=== PATIENT | female | born 1965 | race Caucasian/White ===

== ENCOUNTER 2017-10-15 07:36 | Emergency (ER) | payer BC ==
[~2017-10-15 07:36] MED LIST: CIT20 PO; CYC10 PO; HYDR-3083 PO; LOR5/325 PO; MECL-205 PO; MULT1CAP59 PO; PRE20 PO
--- NOTE | 2017-10-15 07:40 | ER Report ---
History and Physical Time Seen By MD: 07:39 HPI/ROS CHIEF COMPLAINT: Left elbow injury HISTORY OF PRESENT ILLNESS: Patient is an otherwise healthy 52-year-old female who is left-hand dominant. She presents to the emergency department with complaint of left elbow injury. She states that she tripped and fell hitting her left elbow against a doorknob on Sunday. She had a small abrasion with minimal bleeding at the time. She also had some minimal discomfort. She did not think much of it after that. Last night however around 3 AM she woke up with redness pain and swelling to the elbow. She denies any fevers or chills. She states that extension at the elbow causes significant pain. She is unsure of her last tetanus shot. She does state that it is probably more than 5 years. She reports allergy to sulfa medication. REVIEW OF SYSTEMS: Constitutional: No fevers or chills Musculoskeletal: Left elbow pain and swelling Skin: Redness over the left elbow Allergies: Coded Allergies: Sulfa (Sulfonamide Antibiotics) (Verified Allergy, Mild, 12/18/10) Home Meds Active Scripts Ondansetron Hcl (ZOFRAN) 4 Mg Tablet, 4 MG PO Q8H for Nausea, #15 TAB 0 Refills Prov:DEE DEE JASSO MD 10/15/17 Oxycodone Hcl/Acetaminophen (PERCOCET 5-325 MG TABLET) 1 Each Tablet, 1-2 EACH PO Q6H for PAIN, #30 TAB 0 Refills no more than 6 tablets in a 24 hour period Prov:DEE DEE JASSO MD 10/15/17 Clindamycin Hcl (CLINDAMYCIN HCL) 300 Mg Capsule, 300 MG PO Q6H for 7 Days, #28 CAPSULE 0 Refills Prov:DEE DEE JASSO MD 10/15/17 Reported Medications Multivitamin (MULTIVITAMINS) 1 Each Capsule, 1 EACH PO QDAY, CAPSULE 04/06/16 Citalopram Hydrobromide (Celexa) 20 Mg Tab, 40 MG PO HS 12/18/10 Past Medical/Surgical History Noncontributory towards this chief complaint. Hx Smoking: Yes (1 PACK EVERY OTHER DAY) Smoking Status: Current: Every Day Smoker Hx Substance Use Disorder: No Hx Alcohol Use: Yes (OCCASIONALLY) Constitutional Vital Sign - Last 24 Hours 10/15/17 07:40 Temp 98.9 Pulse 81 Resp 18 B/P (MAP) 124/66 Pulse Ox 96 O2 Delivery Room Air Physical Exam General appearance: Alert no distress. Musculoskeletal examination of the left elbow reveals swelling over the olecranon with surrounding erythema that extends distally down the forearm on the dorsal service. Patient is able to pronate and supinate she is able to flex the elbow but has difficulty with full extension. Skin patient has erythema over the left elbow specifically the olecranon bursa. There is a small abrasion centrally to this area. DIFFERENTIAL DIAGNOSIS: After history and physical exam was performed differential diagnosis was formulated which includes but is not limited to cellulitis, olecranon bursitis, less likely dislocation of elbow, less likely fracture of elbow Medical Decision Making EKG/Imaging Imaging FACILITY: [facility] PATIENT NAME: Kassy Galvan : 1965 MR: [id number] V: [id number] EXAM DATE: ORDERING PHYSICIAN: DEE DEE JASSO TECHNOLOGIST: Location: [facility] Patient: Kassy Galvan : 1965 Visit/Account:[id number] Date of Sevice: 10/15/2017 ELBOW 3 VIEW LEFT COMPARISON: None. HISTORY: Infection TECHNIQUE: 3 views of the left elbow FINDINGS: BONES: No significant arthropathy, fracture, malalignment, or significant osseous lesion. Elbow alignment is within normal limits. SOFT TISSUES: Moderate, predominantly dorsal soft tissue swelling. This is relatively focal or olecranon process and olecranon bursitis is not excluded. EFFUSION: No significant distal humeral fat pad displacement to suggest the presence of a joint effusion. OTHER: Negative. IMPRESSION: 1. Left elbow soft tissue swelling, probably representing cellulitis. There may be a component of olecranon bursitis. 2. No evidence of osteomyelitis or effusion. Report Dictated By: Zhang Bhagat at 10/15/2017 8:04 AM Report E-Signed By: Zhang Bhagat at 10/15/2017 8:06 AM WSN:[id number] ED Course/Re-evaluation ED Course 10/15/2017 7:51:10 am based on history and physical exam suspect cellulitis and overlying olecranon bursitis. Plan at this time will be to update tetanus status. We will place an IV given IV dose of Rocephin. We will x-ray the left elbow. Plan will most likely be incision and drainage with packing. Procedure 10/15/2017 8:34:01 am procedure incision and drainage of abscess: A bedside ultrasound was used to confirm the presence of an olecranon bursitis. After informed consent was obtained the patient was draped and prepped in usual sterile fashion. 8 mL of 0.5%. The cane was used for local anesthesia. An 11 blade was used to make a 1 cm incision over the olecranon bursa. There was drainage of both pus and blood approximately 10-15 mL's in total amount. The wound was then explored and loculations were broken up using sterile cotton- tipped applicator soaked in hydrogen peroxide. The wound was then packed with 0.5 inch Nu Gauze approximately 3 inches. The wound was then dressed appropriately with a. Dressing, 4 x 4's and a Haim wrap. He tolerated procedure well. No cultures of the wound were taken as I explained to the patient this would not affect management. Decision to Disposition Date: Oct 15, 2017 Decision to Disposition Time: 08:35 Depart Departure Latest Vital Signs Vital Signs Date Time Temp Pulse Resp B/P (MAP) Pulse Ox O2 Delivery O2 Flow Rate FiO2 10/15/17 07:40 98.9 81 18 124/66 96 Room Air Impression: Primary Impression: Olecranon bursitis of left elbow Additional Impression: Cellulitis of left elbow Condition: Improved Disposition: HOME OR SELF-CARE Referrals: SANTOS SCHMITZ (PCP) New Scripts Ondansetron Hcl (ZOFRAN) 4 Mg Tablet 4 MG PO Q8H for Nausea, #15 TAB 0 Refills Prov: DEE DEE JASSO MD 10/15/17 Oxycodone Hcl/Acetaminophen (PERCOCET 5-325 MG TABLET) 1 Each Tablet 1-2 EACH PO Q6H for PAIN, #30 TAB 0 Refills no more than 6 tablets in a 24 hour period Prov: DEE DEE AJSSO MD 10/15/17 Clindamycin Hcl (CLINDAMYCIN HCL) 300 Mg Capsule 300 MG PO Q6H for 7 Days, #28 CAPSULE 0 Refills Prov: DEE DEE JASSO MD 10/15/17 Patient Instructions: Acute Wound Care (ED), Cellulitis (ED), Elbow Bursitis ( ED) Additional Instructions: Start taking your antibiotics as soon as 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 Return to the emergency department in 48 hours for wound evaluation and potential repacking. Return to the emergency Department immediately for reevaluation at any time if you develop worsening pain, worsening redness, or fever. Keep the wound dressed at all times the exception of when you shower. At this time you may take down the dressing in shower, keep the wound covered with a loose bandage. Once the shower is completely redress the wound with supplies we have given you. Problem Qualifiers DEE DEE JASSO MD Oct 15, 2017 07:40
[2017-10-15] MEDS ORDERED: DIPHTH/TETANUS/ACEL. PERTUSSIS IM ONLY ONE (07:45)
--- NOTE | 2017-10-15 08:10 | RADIOLOGY IMAGING REPORT ---
FAC[place] [facility] [place]IENT NAME: Kassy Galvan : 1965 MR: [id number] V: [id number] EXAM DATE: ORDERING PHYSICIAN: DEE DEE JASSO TECHNOLOGIST: Location: [facility] Patient: Kassy Galvan : 1965 Visit/Account:[id number] Date of Sevice: 10/15/2017 ELBOW 3 VIEW LEFT COMPARISON: None. HISTORY: Infection TECHNIQUE: 3 views of the left elbow FINDINGS: BONES: No significant arthropathy, fracture, malalignment, or significant osseous lesion. Elbow ali gnment is within normal limits. SOFT TISSUES: Moderate, predominantly dorsal soft tissue swelling. This is relatively focal or olec ranon process and olecranon bursitis is not excluded. EFFUSION: No significant distal humeral fat pad displacement to suggest the presence of a joint effu gustavo. OTHER: Negative. IMPRESSION: 1. Left elbow soft tissue swelling, probably representing cellulitis. There may be a component of ol ecranon bursitis. 2. No evidence of osteomyelitis or effusion. Report Dictated By: Zhang Bhagat at 10/15/2017 8:04 AM Report E-Signed By: Zhang Bhagat at 10/15/2017 8:06 AM WSN:[id number]
[2017-10-15 08:30] VITALS: BP 122/68
[2017-10-15] MEDS ORDERED: OXYC-865 PO (08:37)
[2017-10-15] MEDS ORDERED: ONDA4TAB97 PO (08:37)
[2017-10-15] MEDS ORDERED: CLIN300C99 PO (08:37)
[2017-10-15] MEDS ORDERED: cefTRIAXone 1 GM VIAL IVP SCH (09:00)
== END 2017-10-15 08:50 | disposition home or self-care (01) ==
LOC: ER 07:45
DX: M70.22 Olecranon bursitis, left elbow (principal); L03.114 Cellulitis of left upper limb
CPT/HCPCS: 23931; 73080; 90715; J0696; 90471; 96374; 99283; 99284

== ENCOUNTER 2017-10-17 08:01 | Emergency (ER) | payer BC ==
[~2017-10-17 08:01] MED LIST changes: +CLIN300C99 PO; +ONDA4TAB97 PO; +OXYC-865 PO
[2017-10-17 08:05] VITALS: BP 122/56
--- NOTE | 2017-10-17 08:19 | ER Report ---
History and Physical Time Seen By MD: 08:10 Hx. of Stated Complaint: patient was seen on sunday for an abscess on her left elbow. she is here to have the packing removed HPI/ROS CHIEF COMPLAINT: Packing change HISTORY OF PRESENT ILLNESS: 52-year-old female with an abscess to her left elbow wound was incisioned and drained a couple days ago she is here for packing changing Remainder of the 14 system rev: Yes Allergies: Coded Allergies: Sulfa (Sulfonamide Antibiotics) (Verified Allergy, Mild, 12/18/10) Home Meds Active Scripts Ondansetron Hcl (ZOFRAN) 4 Mg Tablet, 4 MG PO Q8H for Nausea, #15 TAB 0 Refills Prov:DEE DEE JASSO MD 10/15/17 Oxycodone Hcl/Acetaminophen (PERCOCET 5-325 MG TABLET) 1 Each Tablet, 1-2 EACH PO Q6H for PAIN, #30 TAB 0 Refills no more than 6 tablets in a 24 hour period Prov:DEE DEE JASSO MD 10/15/17 Clindamycin Hcl (CLINDAMYCIN HCL) 300 Mg Capsule, 300 MG PO Q6H for 7 Days, #28 CAPSULE 0 Refills Prov:DEE DEE JASSO MD 10/15/17 Reported Medications Multivitamin (MULTIVITAMINS) 1 Each Capsule, 1 EACH PO QDAY, CAPSULE 04/06/16 Citalopram Hydrobromide (Celexa) 20 Mg Tab, 40 MG PO HS 12/18/10 Reviewed Nurses Notes: Yes Old Medical Records Reviewed: Yes Hx Smoking: Yes (1 PACK EVERY OTHER DAY) Smoking Status: Current: Every Day Smoker Hx Substance Use Disorder: No Hx Alcohol Use: Yes (OCCASIONALLY) Constitutional Vital Sign - Last 24 Hours 10/17/17 08:05 Temp 98.4 Pulse 74 Resp 20 B/P (MAP) 122/56 Pulse Ox 98 O2 Delivery Room Air Physical Exam General appearance: Alert no distress. Respiratory: Chest is non tender, lungs are clear to auscultation. Cardiac: Regular rate and rhythm [ ] Left elbow examination area is still red warm erythematous consistent with a abscess which has been drained packing is placed DIFFERENTIAL DIAGNOSIS: After history and physical exam differential diagnosis was considered for repacking of an incision and drainage of an elbow abscess Medical Decision Making ED Course/Re-evaluation ED Course ED clinical course medical decision making 52-year-old female who recently had an incision and drainage of the left elbow packing was replaced Procedure note patient had her packing removed without issues secondary packing a one-inch iodoform gauze was placed approximately 2-2.5 cm sterile dressing applied with a Covan patient tolerated well Patient be discharged continued on her home medications including antibiotics and pain medication and follow-up with the medical office building as she has no primary care and instead of her coming to the ER for packing changes which is fine with advised her to get a primary care doc due to age frequency and comorbidity Decision to Disposition Date: Oct 17, 2017 Decision to Disposition Time: 08:18 Depart Departure Latest Vital Signs Vital Signs Date Time Temp Pulse Resp B/P (MAP) Pulse Ox O2 Delivery O2 Flow Rate FiO2 10/17/17 08:05 98.4 74 20 122/56 98 Room Air Impression: Primary Impression: Wound check, abscess Condition: Improved Disposition: HOME OR SELF-CARE Referrals: SANTOS SCHMITZ (PCP) 2 Days Patient Instructions: Abscess (ED), Abscess Incision and Drainage (DC) JAYCEE JOHNSON MD Oct 17, 2017 08:19
== END 2017-10-17 08:30 | disposition home or self-care (01) ==
LOC: ER 08:08
DX: Z48.00 Encounter for change or removal of nonsurgical wound dressing (principal)
CPT/HCPCS: 99281